=== PATIENT | female | born 1975 | race Two or more races ===

== ENCOUNTER 2019-01-10 20:20 | Emergency (ER) | payer SELFPAY ==
[~2019-01-10] VITALS: Ht 175.3 cm; Wt 84.9 kg
[2019-01-10] MEDS ORDERED: KETOROLAC 60MG/2ML VIAL IM STA (23:39)
[2019-01-11 01:45] VITALS: BP 119/73
== END 2019-01-11 02:00 | disposition home or self-care (01) ==
LOC: ER 20:20
DX: S20.219A Contusion of unspecified front wall of thorax, initial encounter (principal); V49.49XA Driver injured in collision with other motor vehicles in traffic accident, initial encounter; Y93.89 Activity, other specified; Y92.89 Other specified places as the place of occurrence of the external cause; Y99.8 Other external cause status; Z87.891 Personal history of nicotine dependence
CPT/HCPCS: 71045; 81025; 93005; 96372; 99283; J1885; Z7610